=== PATIENT | male | born 1960 | race Caucasian/White ===

== ENCOUNTER 2020-05-25 10:22 | Day surgery (SDC) | payer BC, MEDICARE ==
[2020-05-17 14:25] LABS: BASOPHILS # (AUTO) 0.1 X10'3 (0-0.2); BASOPHILS % (AUTO) 0.9 % (0-1); EOSINOPHILS # (AUTO) 0.3 X10'3 (0-0.9); EOSINOPHILS % (AUTO) 4.4 % (0-6); LYMPHOCYTES # (AUTO) 1.8 X10'3 (1.1-4.8); LYMPHOCYTES % (AUTO) 24.3 % (21-51); MEAN CORPUSCULAR HGB CONC 33.9 g/dL (33.0-36.5); MEAN CORPUSCULAR VOLUME 85.5 FL (78-98); MONOCYTES # (AUTO) 0.6 X10'3 (0-0.9); MONOCYTES % (AUTO) 8.1 % (2-12); NEUTROPHILS # (AUTO) 4.6 X10'3 (1.8-7.7); NEUTROPHILS % (AUTO) 62.3 % (42-75); PRE OP HEMATOCRIT 43.3 % (42.0-52.0); PRE OP HEMOGLOBIN 14.7 g/dL (14.0-17.9); PRE OP PLATELET COUNT 186 X10'3 (140-440); RED BLOOD COUNT 5.07 X10'6 (4.70-6.10); RED CELL DISTRIBUTION WIDTH 13.6 % (11.5-14.5)
[2020-05-17 14:36] LABS: ALBUMIN/GLOBULIN RATIO 1.1 (1.1-1.5); ALKALINE PHOSPHATASE 60 IU/L (46-116); BLOOD UREA NITROGEN 20 MG/DL (7-18); BUN/CREATININE RATIO 17.2 (5.4-32.0); CALCIUM 8.9 MG/DL (8.5-10.1); CHLORIDE 103 MMOL/L (99-107); CREATININE 1.16 MG/DL (0.60-1.10); PRE OP ALT 54 U/L (30-65); PRE OP ANION GAP 7 (8-16); PRE OP AST 25 U/L (10-37); PRE OP BILIRUB, TOTAL 0.4 MG/DL (0.0-1.0); PRE OP GLUCOSE 149 MG/DL (70-104); PRE OP POTASSIUM 4.4 MMOL/L (3.4-5.1); PRE OP SODIUM 140 MMOL/L (135-145); TOTAL PROTEIN 7.6 G/DL (6.4-8.2); eGFR 64 ML/MIN
[2020-05-17 14:51] LABS: CLARITY,URINE CLEAR (Clear); COLOR,URINE YELLOW (Yellow); GLUCOSE, URINE NEGATIVE (Neg); KETONES,URINE NEGATIVE (Neg); LEUKOCYTE ESTERASE ,URINE NEGATIVE (Neg); NITRITES, URINE NEGATIVE (Neg); OCCULT BLOOD,URINE NEGATIVE (Neg); PROTEIN,URINE NEGATIVE (Neg); UA COLLECTION TYPE CLN CATCH MIDSTREAM; UROBILINOGEN,URINE 0.2 E.U/dL (0.2-1.0)
[2020-05-25] VITALS (12 sets, daily range): BP systolic 115–160; BP diastolic 66–83
[~2020-05-25] VITALS: Ht 193 cm; Wt 142.9 kg
[~2020-05-25 10:22] MED LIST: ATOR40TA72 PO; BISO5TAB29 PO; DOCUMENT DATE & TIME OF BETA-BLOCKER PO ONE; FLO0.4C PO; INSU100I25 SQ; ceFAZolin inj. 3,000 MG in normal saline 100ml IV soln 100 ML IV ONE; famotidine 20mg tablet PO ONE; ringers solution, lacted 1,000 ML IV SCH
[2020-05-25] MEDS ORDERED: bacitracin 15gm ointment TP ONE (11:09)
[2020-05-25] MEDS ORDERED: sevoflurane 250ml liquid IH ONE (11:23)
[2020-05-25] MEDS ORDERED: fentaNYL/PF 50MCG/1 ML 2ML syringe ONE (11:23)
[2020-05-25] MEDS ORDERED: midazolam 2 mg/2 ml injection ONE (11:23)
[2020-05-25] MEDS ORDERED: LIDOcaine 2% (20mg/ml) 5ml vial ONE (11:24)
[2020-05-25] MEDS ORDERED: propofol inj 20 ML IV ONE (11:24)
[2020-05-25] MEDS ORDERED: morphine 2 MG/ML inj. syringe IV PRN (12:00)
[2020-05-25] MEDS ORDERED: morphine 4 MG/ML inj SYRINge IV PRN (12:00)
[2020-05-25] MEDS ORDERED: hydrALAZINE 20mg/ml inj. IV PRN (12:00)
[2020-05-25] MEDS ORDERED: labetalol 20mg/4ml (5mg/ml) syringe IV PRN (12:00)
[2020-05-25] MEDS ORDERED: ringers solution, lacted 1,000 ML IV SCH (12:00)
[2020-05-25] MEDS ORDERED: ondansetron/PF 4mg/2ml inj IV PRN (12:00)
[2020-05-25] MEDS ORDERED: fentaNYL/PF 50MCG/1 ML 2ML syringe IV PRN ×2 (12:00)
--- NOTE | 2020-05-25 12:25 | NUR ---
ADMITTED TO PACU FROM OR ACCOMPANIED BY ANESTHESIA. INTIAL PHYSICAL ASSESSMENT DONE AND RECORDED. REPORT RECEIVED FROM ANESTHESIA.
--- NOTE | 2020-05-25 14:20 | NUR ---
DISCHARGE CRITERIA MET, DISCHARGE INSTRUCTIONS GIVEN, DEMONSTRATES VERBAL UNDERSTANDING. DISCHARGED HOME IN GOOD CONDITION.
== END 2020-05-25 14:20 | disposition home or self-care (01) ==
LOC: PAS 10:22
PROVIDERS: ATTEND Podiatrist Foot & Ankle Surgery
DX: M25.775 Osteophyte, left foot (principal); Z20.822 Contact with and (suspected) exposure to COVID-19; M19.072 Primary osteoarthritis, left ankle and foot; E66.9 Obesity, unspecified; Z68.38 Body mass index [BMI] 38.0-38.9, adult; I10 Essential (primary) hypertension; E11.9 Type 2 diabetes mellitus without complications; G89.18 Other acute postprocedural pain; Z88.8 Allergy status to other drugs, medicaments and biological substances; Z79.4 Long term (current) use of insulin; Z79.82 Long term (current) use of aspirin; Z79.899 Other long term (current) drug therapy; Z98.890 Other specified postprocedural states; Z72.89 Other problems related to lifestyle
CPT/HCPCS: 28110; 36415; 64447; 64450; 80053; 81003; 82948; 85025; 87635; 93005; A6223; J0690; J2001; J2250; J2704; J3010; A4215; A4618; A6253; A6449; A7000; J7120